=== PATIENT | female | born 1950 | race African-American/Black ===

== ENCOUNTER → 2016-11-14 | Outpatient (CLI) | payer MEDICARE ==
[2015-10-22 13:56] VITALS: BP 107/57
[~2016-11-14] MED LIST: ALPR0.5T PO; ALPR1TAB6 PO; AMLO10TA4 PO; ASPI-482 PO; ATOR10TA60 PO; CYCL10TA2 PO; ESOM40CA PO; FENT1PAT15 TD; FERR-26 PO; FURO-68 PO; FURO40TA4 PO; GLIM1TAB PO; INSU300I SQ; LIDO700A4 TP; LISI20TA PO; MELO-156 PO; MELO7.5T5 PO; METF500T4 PO; METF500T9 PO; METO10TA81 PO; OMEP20CA9 PO; OXCA150T3 PO; OXCA300T3 PO; OXYB10TA PO; OXYC-244 PO; POLY17PO5 PO; POTA20TA4 PO; POTA20TA84 PO; PROAIR HFA8.5 GM INH; SIMV20TA PO; SITA100T PO; VENL37.56 PO; VENL75CA6 PO; WARF5TAB7 PO
--- NOTE | 2016-11-14 11:10 | EKG ---
[facility] [address] [place] [address] Test Date: 2016-11-14 Test Time: 11:16:36 Pat Name: JUSTA BEJARANO Department: Room: Gender: F [employer]: RAFIQ : 1950 Requested By: MARGIE GAO Order Number: [id number] Reading MD: Measurements Intervals [place] Rate: 85 P: 52 OR: 162 QRS: 48 QRSD: 84 T: 48 QT: 362 QTc: 431 Interpretive Statements SINUS RHYTHM QRS(T) CONTOUR ABNORMALITY CONSIDER ANTEROSEPTAL MYOCARDIAL DAMAGE POSSIBLY ABNORMAL ECG RI6.01 Compared to ECG 10/04/2015 12:54:29 No significant changes
[2016-11-14 11:30] LABS: BASO # 0.1 x10^3/uL (0.0-0.2); BASO % 1 % (0-3); EOS % 3 % (0-3); HEMATOCRIT 38.4 % (36.0-47.0); HEMOGLOBIN 12.2 g/dL (12.0-15.5); LYMPH # 2.2 x10^3/uL (1.0-4.8); LYMPH % 39 % (24-48); MEAN CORPUSCULAR HEMOGLOBIN 29 pg (25-35); MEAN CORPUSCULAR HGB CONC 32 g/dL (31-37); MEAN CORPUSCULAR VOLUME 90 fL (79-100); MONO % 10 % (0-9); NEUT % 47 % (31-73); PLATELET COUNT 358 x10^3/uL (140-400); RED BLOOD COUNT 4.27 x10^6/uL (3.50-5.40); RED CELL DISTRIBUTION WIDTH 15.8 % (11.5-14.5); WHITE BLOOD COUNT 5.7 x10^3/uL (4.0-11.0)
[2016-11-14 11:32] LABS: BILIRUBIN,URINE NEGATIVE (NEG); GLUCOSE,URINE NEGATIVE (NEG); NITRITE,URINE POSITIVE (NEG); PH,URINE 5.5; PROTEIN,URINE 30 mg/dL (NEG-TRACE); UROBILINOGEN,URINE 0.2 mg/dL (0.2 mg/dL)
[2016-11-14 11:37] LABS: CALCIUM 9.8 mg/dL (8.5-10.1); CREATININE 0.8 mg/dL (0.6-1.0); GFR 87.4
[2016-11-14 11:47] LABS: INR 1.1 (0.8-1.1); PROTHROMBIN TIME PATIENT 13.2 SEC (11.7-14.0)
[2016-11-14 11:48] LABS: BACTERIA,URINE MANY /HPF (0-FEW); SQUAMOUS EPITHELIAL CELL,UR FEW /LPF; WBC,URINE >40 /HPF (0-4)
--- NOTE | 2016-11-14 15:48 | RAD ---
INDICATION: Preoperative evaluation for surgery COMPARISON: 10/04/2015 FINDINGS: 2 views of chest obtained. Right shoulder arthroplasty changes. No definite focal airspace consolidation or edema. Mediastinal contour unremarkable. Degenerative spurring thoracic spine IMPRESSION: No focal airspace consolidation.
== END | disposition home or self-care (01) ==
LOC: SURGPAT 09:07
PROVIDERS: ATTEND Orthopaedic Surgery
DX: Z01.818 Encounter for other preprocedural examination (principal)
CPT/HCPCS: 36415; 71020; 80048; 81001; 83036; 85027; 85610; 85651; 85730; 87086; 87641; 93005

== ENCOUNTER → 2016-12-15 | Outpatient (CLI) | payer MEDICARE ==
[2015-10-22 13:56] VITALS: BP 107/57
[2016-12-15 12:56] LABS: BILIRUBIN,URINE NEGATIVE (NEG); GLUCOSE,URINE NEGATIVE (NEG); NITRITE,URINE POSITIVE (NEG); PROTEIN,URINE NEGATIVE (NEG-TRACE); UROBILINOGEN,URINE 0.2 mg/dL (0.2 mg/dL)
[2016-12-15 13:32] LABS: BACTERIA,URINE MANY /HPF (0-FEW); RBC,URINE 0 /HPF (0-2); WBC,URINE >40 /HPF (0-4)
[2016-12-15 13:33] LABS: SQUAMOUS EPITHELIAL CELL,UR FEW /LPF
== END | disposition home or self-care (01) ==
LOC: OPSVCOP 12:13
PROVIDERS: ATTEND Orthopaedic Surgery
DX: N39.0 Urinary tract infection, site not specified (principal)
CPT/HCPCS: 81001; 87086; 87186

== ENCOUNTER → 2017-01-08 | Outpatient (CLI) | payer MEDICARE ==
[2015-10-22 13:56] VITALS: BP 107/57
[~2017-01-08] MED LIST changes: +NITR100C PO; +POLY17PO29 PO; -POLY17PO5 PO
[2017-01-08 11:28] LABS: BASO % 1 % (0-3); EOS % 2 % (0-3); HEMATOCRIT 37.1 % (36.0-47.0); HEMOGLOBIN 11.8 g/dL (12.0-15.5); LYMPH # 2.3 x10^3/uL (1.0-4.8); LYMPH % 37 % (24-48); MEAN CORPUSCULAR HEMOGLOBIN 28 pg (25-35); MEAN CORPUSCULAR HGB CONC 32 g/dL (31-37); MEAN CORPUSCULAR VOLUME 89 fL (79-100); MONO % 8 % (0-9); NEUT % 53 % (31-73); PLATELET COUNT 329 x10^3/uL (140-400); RED BLOOD COUNT 4.18 x10^6/uL (3.50-5.40); RED CELL DISTRIBUTION WIDTH 15.4 % (11.5-14.5); WHITE BLOOD COUNT 6.2 x10^3/uL (4.0-11.0)
[2017-01-08 11:29] LABS: ALBUMIN 3.6 g/dL (3.4-5.0); CALCIUM 8.9 mg/dL (8.5-10.1); CREATININE 0.8 mg/dL (0.6-1.0); GFR 87.4; POTASSIUM 4.1 mmol/L (3.5-5.1)
[2017-01-08 11:43] LABS: INR 1.1 (0.8-1.1); PROTHROMBIN TIME PATIENT 13.6 SEC (11.7-14.0)
[2017-01-08 11:59] LABS: BILIRUBIN,URINE NEGATIVE (NEG); GLUCOSE,URINE NEGATIVE (NEG); NITRITE,URINE NEGATIVE (NEG); PROTEIN,URINE NEGATIVE (NEG-TRACE); UROBILINOGEN,URINE 0.2 mg/dL (0.2 mg/dL)
[2017-01-08 12:24] LABS: BACTERIA,URINE FEW /HPF (0-FEW); RBC,URINE 0 /HPF (0-2); WBC,URINE OCC /HPF (0-4)
[2017-01-08 12:25] LABS: SQUAMOUS EPITHELIAL CELL,UR MOD /LPF
== END | disposition home or self-care (01) ==
LOC: SURGPAT 10:27
PROVIDERS: ATTEND Orthopaedic Surgery
DX: Z01.818 Encounter for other preprocedural examination (principal); M17.11 Unilateral primary osteoarthritis, right knee
CPT/HCPCS: 36415; 80048; 81001; 82040; 85027; 85610; 85651; 85730; 87641